=== PATIENT | male | born 1960 | race Caucasian/White ===

== ENCOUNTER 2017-03-02 23:57 | Inpatient (IN) | payer OTHER ==
[~2017-03-02] VITALS: Ht 190.5 cm; Wt 110.7 kg
[2017-03-03] VITALS (9 sets, daily range): BP systolic 103–151; BP diastolic 68–105
[2017-03-03 00:46] LABS: BASO % 0.4 % (0.0-1.0); EOS # 0.1 10*3/uL (0.0-0.4); EOS % 0.8 % (1.0-4.0); HEMATOCRIT 40.7 % (42.0-52.0); HEMOGLOBIN 13.8 g/dl (14.0-18.0); LYMPH % 28.5 % (27.0-41.0); MEAN CELL VOLUME 91.3 fl (80.0-94.0); MEAN CORPUSCULAR HGB 30.9 pg (27.0-31.0); MEAN CORPUSCULAR HGB CONC 33.9 g/dl (33.0-37.0); MEAN PLATELET VOLUME 8.7 fl (9.6-12.3); MONO # 0.6 10*3/uL (0.1-1.0); MONO % 5.6 % (3.0-9.0); NEUT # 6.8 10*3/uL (2.3-7.9); NEUT % 64.4 % (47.0-73.0); PLATELET COUNT AUTOMATED 243 10*3/uL (130-400); RED BLOOD COUNT 4.46 10*6/uL (4.50-5.90); RED CELL DISTRI WIDTH 13.5 % (0-14.5); WHITE BLOOD COUNT 10.5 10*3/uL (4.8-10.8)
[2017-03-03 01:01] LABS: ALBUMIN 3.6 gm/dl (3.1-4.5); ALKALINE PHOSPHATASE 110 U/L (45-117); BILIRUBIN, TOTAL 0.7 mg/dl (0.2-1.0); BUN 26 mg/dl (7-24); CARBON DIOXIDE 21 mmol/L (21-32); CHLORIDE 98 mmol/L (98-107); EST GLOM FILT AFRICAN AMERICAN > 60 ml/min; GLUCOSE 150 mg/dL (65-99); MAGNESIUM 1.7 mg/dL (1.5-2.1); POTASSIUM 4.9 mmol/L (3.5-5.1); SGOT/AST 155 IU/L (3-35); SGPT/ALT 193 U/L (12-78); SODIUM 134 mmol/L (136-145); TOTAL PROTEIN 7.2 gm/dL (6.4-8.2)
[2017-03-03 01:11] LABS: INTERNATIONAL NORM RATIO 0.9 (2.0-3.5)
[2017-03-03] MEDS ORDERED: HYDROXYZINE PAM25 M1 PO (02:06)
[2017-03-03] MEDS ORDERED: SSD1% T (02:07)
[2017-03-03] MEDS ORDERED: ATORVASTATIN CA20 M1 PO (02:07)
[2017-03-03] MEDS ORDERED: LISINOPRIL30 MG PO (02:07)
[2017-03-03] MEDS ORDERED: METFORMIN HCL1000 MG PO (02:07)
[2017-03-03] MEDS ORDERED: ASPIRIN CHEWABL81 MG PO (02:08)
[2017-03-03] MEDS ORDERED: PRILOSEC20 M1 PO (02:08)
[2017-03-03 02:09] LABS: BILIRUBIN NEGATIVE (NEGATIVE); BLOOD NEGATIVE (NEGATIVE); CLARITY CLEAR (CLEAR); COLOR YELLOW (YELLOW); GLUCOSE NEGATIVE (NEGATIVE); KETONE 1+ (NEGATIVE); LEUKO ESTERASE NEGATIVE (NEGATIVE); NITRITE NEGATIVE (NEGATIVE); PROTEIN NEGATIVE (NEGATIVE); UROBILINOGEN 0.2 E.U./dl (0.2-1.0)
[2017-03-03 02:18] LABS: BACTERIA 1+
[2017-03-03 02:19] LABS: URINE AMPHETAMINES < 1000 (1000ng/ml); URINE BARBITURATES < 200 (200ng/ml); URINE COCAINE < 300 (300ng/ml)
[2017-03-03] MEDS ORDERED: KEFLEX250 MG PO ×2 (03:22)
[2017-03-03 06:01] LABS: MAGNESIUM 1.7 mg/dL (1.5-2.1); PHOSPHOROUS 2.9 mg/dL (2.5-4.9)
[2017-03-03 06:56] LABS: BUN 22 mg/dl (7-24); CARBON DIOXIDE 22 mmol/L (21-32); CHLORIDE 98 mmol/L (98-107); EST GLOM FILT AFRICAN AMERICAN > 60 ml/min; GLUCOSE 85 mg/dL (65-99); POTASSIUM 4.3 mmol/L (3.5-5.1); SODIUM 137 mmol/L (136-145)
[2017-03-04] VITALS: BP 149/90
[2017-03-04 04:00] VITALS: BP 135/100
[2017-03-04 06:23] LABS: BASO % 0.3 % (0.0-1.0); EOS # 0.2 10*3/uL (0.0-0.4); EOS % 2.6 % (1.0-4.0); HEMOGLOBIN 13.7 g/dl (14.0-18.0); LYMPH # 1.2 10*3/uL (1.3-4.4); LYMPH % 19.2 % (27.0-41.0); MEAN CELL VOLUME 91.1 fl (80.0-94.0); MEAN CORPUSCULAR HGB 31.2 pg (27.0-31.0); MEAN CORPUSCULAR HGB CONC 34.3 g/dl (33.0-37.0); MEAN PLATELET VOLUME 9.1 fl (9.6-12.3); MONO # 0.4 10*3/uL (0.1-1.0); MONO % 7.1 % (3.0-9.0); NEUT # 4.3 10*3/uL (2.3-7.9); NEUT % 70.5 % (47.0-73.0); RED BLOOD COUNT 4.39 10*6/uL (4.50-5.90); RED CELL DISTRI WIDTH 13.2 % (0-14.5); WHITE BLOOD COUNT 6.1 10*3/uL (4.8-10.8)
[2017-03-04 06:26] LABS: PLATELET COUNT AUTOMATED 140 10*3/uL (130-400)
[2017-03-04 06:29] LABS: ALBUMIN 3.6 gm/dl (3.1-4.5); BILIRUBIN, TOTAL 1.2 mg/dl (0.2-1.0); BUN 16 mg/dl (7-24); CARBON DIOXIDE 30 mmol/L (21-32); CHLORIDE 95 mmol/L (98-107); EST GLOM FILT AFRICAN AMERICAN > 60 ml/min; GLUCOSE 148 mg/dL (65-99); POTASSIUM 4.1 mmol/L (3.5-5.1); SGOT/AST 88 IU/L (3-35); SGPT/ALT 153 U/L (12-78); SODIUM 134 mmol/L (136-145); TOTAL PROTEIN 7.2 gm/dL (6.4-8.2)
[2017-03-04 06:39] LABS: ALKALINE PHOSPHATASE 110 U/L (45-117)
[2017-03-04 08:00] VITALS: BP 154/114
[2017-03-04 09:07] LABS: HEPATITIS C VIRUS ANTIBODY <0.1 s/co (0.0-0.9)
[2017-03-04 12:00] VITALS: BP 139/94
[2017-03-04 16:00] VITALS: BP 122/89
== END 2017-03-04 18:20 | disposition left against medical advice (07) | DRG 894 ==
LOC: ED 23:57 → EDHOLD 03-03 02:25 → ICCU 03-03 02:37
PROVIDERS: Emergency Medicine Emergency Medical Services; Internal Medicine
DX: F10.231 Alcohol dependence with withdrawal delirium (principal); N17.0 Acute kidney failure with tubular necrosis; E87.1 Hypo-osmolality and hyponatremia; J02.9 Acute pharyngitis, unspecified; F17.200 Nicotine dependence, unspecified, uncomplicated; E11.65 Type 2 diabetes mellitus with hyperglycemia; E78.1 Pure hyperglyceridemia; K21.9 Gastro-esophageal reflux disease without esophagitis; I10 Essential (primary) hypertension; F41.9 Anxiety disorder, unspecified; D64.9 Anemia, unspecified; Z53.21 Procedure and treatment not carried out due to patient leaving prior to being seen by health care provider; Z82.0 Family history of epilepsy and other diseases of the nervous system; Z83.3 Family history of diabetes mellitus; Z79.82 Long term (current) use of aspirin; Z79.84 Long term (current) use of oral hypoglycemic drugs; Z79.899 Other long term (current) drug therapy

== ENCOUNTER 2017-03-06 12:00 | Inpatient (IN) | payer OTHER ==
[~2017-03-06] VITALS: Ht 190.5 cm; Wt 107.6 kg
--- NOTE | ~2017-03-06 | CON ---
[place], [place] REPORT OF CONSULTATION [id number] UNIT #: [id number] ROOM: 407 DOCTOR: MORIAH RUBIO DPM BIRTHDATE: [birth year] DOS: 03/08/2017 SUBJECTIVE: The patient is a 56-year-old male who has been well known to me for diabetic ulcerations. The patient had currently being treated for chronic plantar right hallux ulceration. The patient was taking cephalexin outpatient. PAST MEDICAL HISTORY: Alcohol abuse, anxiety, diabetes, essential hypertension, GERD, hypercholesteremia, normocytic anemia, obesity, tobacco abuse disorder. PAST SURGICAL HISTORY: None. SOCIAL HISTORY: Chews tobacco 1-1.5 cans daily. Daily alcohol consumption. Denies illicit drug use. FAMILY HISTORY: Father age 78 of Alzheimer disease. Mother at age 74 of diabetes with complications. PHYSICAL EXAMINATION: EXTREMITIES: Lower extremity examination: Pedal pulses palpable. Decreased epicritic sensation. Decreased hair growth. Ulceration on plantar right hallux measuring approximately 1.6 cm diameter is to and through subcutaneous tissue level. No signs of purulent drainage or foul odor. No localized cellulitis. There is an abrasion to the dorsal second right toe. No signs of acute infection of second right toe. ASSESSMENT: Diabetic ulceration on plantar aspect right hallux, abrasion second right toe. PLAN: Evaluation and management. Debrided necrotic nonviable tissue excisionally with a 10 blade plantar aspect right hallux. Ordered Bactroban dressing to be applied daily. The first and second right toes, cephalexin 500 mg 1 every 8 hours. The patient will be followed for continued care. The patient was going to be set up for application of Dermagraft tissue graft, but we will defer that until the patient is stable. MORIAH RUBIO DPM CM:CONSTR:REPORT OF CONSULTATION 1211 03/08/17 [id number] interface
[~2017-03-06 12:00] MED LIST: ASPIRIN CHEWABL81 MG PO; ATORVASTATIN CA20 M1 PO; HYDROXYZINE PAM25 M1 PO; KEFLEX250 MG PO; LISINOPRIL30 MG PO; METFORMIN HCL1000 MG PO; PRILOSEC20 M1 PO; SSD1% T
[2017-03-06 12:31] VITALS: BP 118/98
[2017-03-06 12:46] LABS: BASO % 0.5 % (0.0-1.0); EOS # 0.1 10*3/uL (0.0-0.4); EOS % 1.6 % (1.0-4.0); HEMATOCRIT 37.4 % (42.0-52.0); HEMOGLOBIN 12.9 g/dl (14.0-18.0); LYMPH # 1.7 10*3/uL (1.3-4.4); LYMPH % 19.8 % (27.0-41.0); MEAN CELL VOLUME 90.3 fl (80.0-94.0); MEAN CORPUSCULAR HGB 31.2 pg (27.0-31.0); MEAN CORPUSCULAR HGB CONC 34.5 g/dl (33.0-37.0); MEAN PLATELET VOLUME 8.4 fl (9.6-12.3); MONO # 0.7 10*3/uL (0.1-1.0); MONO % 7.9 % (3.0-9.0); NEUT # 5.9 10*3/uL (2.3-7.9); NEUT % 69.8 % (47.0-73.0); PLATELET COUNT AUTOMATED 163 10*3/uL (130-400); RED BLOOD COUNT 4.14 10*6/uL (4.50-5.90); RED CELL DISTRI WIDTH 13.4 % (0-14.5); WHITE BLOOD COUNT 8.5 10*3/uL (4.8-10.8)
[2017-03-06 12:57] LABS: PROTHROMBIN TIME 10.5 SECONDS (9.0-12.4)
[2017-03-06 13:03] LABS: ALBUMIN 3.6 gm/dl (3.1-4.5); ALKALINE PHOSPHATASE 127 U/L (45-117); BILIRUBIN, TOTAL 0.6 mg/dl (0.2-1.0); BUN 13 mg/dl (7-24); CARBON DIOXIDE 23 mmol/L (21-32); CHLORIDE 97 mmol/L (98-107); EST GLOM FILT AFRICAN AMERICAN > 60 ml/min; GLUCOSE 94 mg/dL (65-99); POTASSIUM 4.3 mmol/L (3.5-5.1); SGOT/AST 96 IU/L (3-35); SGPT/ALT 153 U/L (12-78); SODIUM 134 mmol/L (136-145); TOTAL PROTEIN 7.3 gm/dL (6.4-8.2)
[2017-03-06 13:04] LABS: TROPONIN I < 0.015 ng/ml (<0.045)
[2017-03-06 13:27] VITALS: BP 116/82
[2017-03-06 16:00] VITALS: BP 118/67
[2017-03-06 16:46] LABS: LA>2 REFLEX 2 HR DRAW NOW
[2017-03-06] MEDS ORDERED: NATURE'S BLEND F1 MG PO (19:18)
[2017-03-06] MEDS ORDERED: MAGNESIUM250 M2 PO (19:19)
[2017-03-06] MEDS ORDERED: VIT C-ROSE HIP500 MG PO (19:20)
[2017-03-06] MEDS ORDERED: VITAMIN B150 MG PO (19:22)
[2017-03-06 20:00] VITALS: BP 134/92
[2017-03-06 22:52] LABS: BILIRUBIN NEGATIVE (NEGATIVE); BLOOD NEGATIVE (NEGATIVE); CLARITY CLEAR (CLEAR); COLOR YELLOW (YELLOW); GLUCOSE NEGATIVE (NEGATIVE); KETONE 1+ (NEGATIVE); LEUKO ESTERASE NEGATIVE (NEGATIVE); NITRITE NEGATIVE (NEGATIVE); PH 5.5 (5.0-9.0); PROTEIN NEGATIVE (NEGATIVE); SPECIFIC GRAVITY 1.015 (1.005-1.030); UROBILINOGEN 0.2 E.U./dl (0.2-1.0)
[2017-03-06 22:58] LABS: RBC 0-2 rbc/hpf (0-2); URINE REFLEX COMMENT NO (NO); WBC 0-2 wbc/hpf (0-5)
[2017-03-06 23:01] LABS: URINE AMPHETAMINES < 1000 (1000ng/ml); URINE BARBITURATES < 200 (200ng/ml); URINE COCAINE < 300 (300ng/ml)
[2017-03-07] VITALS: BP 117/63
[2017-03-07 04:00] VITALS: BP 137/71
[2017-03-07 05:52] LABS: ALBUMIN 3.2 gm/dl (3.1-4.5); BUN 14 mg/dl (7-24); CARBON DIOXIDE 29 mmol/L (21-32); CHLORIDE 100 mmol/L (98-107); EST GLOM FILT AFRICAN AMERICAN > 60 ml/min; GLUCOSE 106 mg/dL (65-99); POTASSIUM 4.5 mmol/L (3.5-5.1); SGOT/AST 60 IU/L (3-35); SGPT/ALT 117 U/L (12-78); SODIUM 136 mmol/L (136-145)
[2017-03-07 05:53] LABS: ALKALINE PHOSPHATASE 103 U/L (45-117); BILIRUBIN, TOTAL 0.4 mg/dl (0.2-1.0); TOTAL PROTEIN 6.3 gm/dL (6.4-8.2)
[2017-03-07 05:55] LABS: BASO % 0.3 % (0.0-1.0); EOS # 0.2 10*3/uL (0.0-0.4); EOS % 3.1 % (1.0-4.0); HEMATOCRIT 35.4 % (42.0-52.0); HEMOGLOBIN 11.9 g/dl (14.0-18.0); LYMPH # 1.5 10*3/uL (1.3-4.4); LYMPH % 23.8 % (27.0-41.0); MEAN CELL VOLUME 92.2 fl (80.0-94.0); MEAN CORPUSCULAR HGB CONC 33.6 g/dl (33.0-37.0); MEAN PLATELET VOLUME 9.2 fl (9.6-12.3); MONO # 0.5 10*3/uL (0.1-1.0); MONO % 8.3 % (3.0-9.0); NEUT # 4.1 10*3/uL (2.3-7.9); NEUT % 63.9 % (47.0-73.0); PLATELET COUNT AUTOMATED 128 10*3/uL (130-400); RED BLOOD COUNT 3.84 10*6/uL (4.50-5.90); RED CELL DISTRI WIDTH 13.5 % (0-14.5); WHITE BLOOD COUNT 6.5 10*3/uL (4.8-10.8)
[2017-03-07 06:01] LABS: HEMOGLOBIN A1c 5.9 % (4.8-5.6)
[2017-03-07 08:00] VITALS: BP 163/90
[2017-03-07 12:00] VITALS: BP 140/70
[2017-03-07 16:00] VITALS: BP 148/97
[2017-03-07 20:00] VITALS: BP 127/83
[2017-03-08] VITALS: BP 143/87
[2017-03-08 04:00] VITALS: BP 136/84
[2017-03-08 06:14] LABS: BASO % 0.2 % (0.0-1.0); EOS # 0.1 10*3/uL (0.0-0.4); EOS % 2.4 % (1.0-4.0); HEMATOCRIT 36.4 % (42.0-52.0); HEMOGLOBIN 12.3 g/dl (14.0-18.0); LYMPH # 1.1 10*3/uL (1.3-4.4); LYMPH % 19.1 % (27.0-41.0); MEAN CELL VOLUME 91.5 fl (80.0-94.0); MEAN CORPUSCULAR HGB 30.9 pg (27.0-31.0); MEAN CORPUSCULAR HGB CONC 33.8 g/dl (33.0-37.0); MEAN PLATELET VOLUME 9.3 fl (9.6-12.3); MONO # 0.7 10*3/uL (0.1-1.0); MONO % 12.4 % (3.0-9.0); NEUT # 3.8 10*3/uL (2.3-7.9); NEUT % 65.6 % (47.0-73.0); PLATELET COUNT AUTOMATED 115 10*3/uL (130-400); RED BLOOD COUNT 3.98 10*6/uL (4.50-5.90); RED CELL DISTRI WIDTH 13.3 % (0-14.5); WHITE BLOOD COUNT 5.8 10*3/uL (4.8-10.8)
[2017-03-08 06:18] LABS: ALBUMIN 3.2 gm/dl (3.1-4.5); ALKALINE PHOSPHATASE 116 U/L (45-117); BILIRUBIN, TOTAL 0.5 mg/dl (0.2-1.0); BUN 8 mg/dl (7-24); CARBON DIOXIDE 29 mmol/L (21-32); CHLORIDE 98 mmol/L (98-107); EST GLOM FILT AFRICAN AMERICAN > 60 ml/min; GLUCOSE 128 mg/dL (65-99); SGOT/AST 41 IU/L (3-35); SGPT/ALT 105 U/L (12-78); SODIUM 135 mmol/L (136-145); TOTAL PROTEIN 6.6 gm/dL (6.4-8.2)
[2017-03-08 08:00] VITALS: BP 130/90
[2017-03-08 12:00] VITALS: BP 110/96
[2017-03-08 16:00] VITALS: BP 118/81
[2017-03-08 20:00] VITALS: BP 145/81
[2017-03-09] VITALS: BP 128/76
[2017-03-09 06:42] LABS: BASO % 0.5 % (0.0-1.0); EOS # 0.1 10*3/uL (0.0-0.4); EOS % 1.6 % (1.0-4.0); HEMATOCRIT 40.5 % (42.0-52.0); HEMOGLOBIN 13.7 g/dl (14.0-18.0); IG # 0.1 10*3/uL (0.0-0.1); LYMPH % 30.3 % (27.0-41.0); MEAN CELL VOLUME 92.3 fl (80.0-94.0); MEAN CORPUSCULAR HGB 31.2 pg (27.0-31.0); MEAN CORPUSCULAR HGB CONC 33.8 g/dl (33.0-37.0); MEAN PLATELET VOLUME 9.2 fl (9.6-12.3); MONO # 0.8 10*3/uL (0.1-1.0); MONO % 12.3 % (3.0-9.0); NEUT # 3.5 10*3/uL (2.3-7.9); NEUT % 54.4 % (47.0-73.0); PLATELET COUNT AUTOMATED 204 10*3/uL (130-400); RED BLOOD COUNT 4.39 10*6/uL (4.50-5.90); RED CELL DISTRI WIDTH 13.5 % (0-14.5); WHITE BLOOD COUNT 6.4 10*3/uL (4.8-10.8)
[2017-03-09 07:01] LABS: ALBUMIN 3.7 gm/dl (3.1-4.5); ALKALINE PHOSPHATASE 133 U/L (45-117); BILIRUBIN, TOTAL 0.5 mg/dl (0.2-1.0); BUN 10 mg/dl (7-24); CARBON DIOXIDE 32 mmol/L (21-32); CHLORIDE 98 mmol/L (98-107); EST GLOM FILT AFRICAN AMERICAN > 60 ml/min; GLUCOSE 138 mg/dL (65-99); POTASSIUM 4.8 mmol/L (3.5-5.1); SGOT/AST 47 IU/L (3-35); SGPT/ALT 115 U/L (12-78); SODIUM 135 mmol/L (136-145); TOTAL PROTEIN 7.8 gm/dL (6.4-8.2)
[2017-03-09 08:00] VITALS: BP 144/82
[2017-03-09 12:00] VITALS: BP 131/81
[2017-03-09 16:00] VITALS: BP 154/85
[2017-03-09 20:00] VITALS: BP 123/71
[2017-03-10] VITALS: BP 130/83
[2017-03-10 08:00] VITALS: BP 118/80
[2017-03-10] MEDS ORDERED: KEFLEX 500 MG E2 CAP PO (09:26)
== END 2017-03-10 11:02 | disposition home or self-care (01) | DRG 623 ==
LOC: ED 12:00 → EDHOLD 12:57 → 4E 12:57 → ICCU 13:05 → 4E 03-08 09:39
PROVIDERS: Internal Medicine; Internal Medicine Hospice and Palliative Medicine; Nurse Practitioner Family
PROC: 0JBQ0ZZ Excision of Right Foot Subcutaneous Tissue and Fascia, Open Approach (ICD-10-PCS; principal; 2017-03-08)
DX: E11.621 Type 2 diabetes mellitus with foot ulcer (principal); F10.231 Alcohol dependence with withdrawal delirium; L97.519 Non-pressure chronic ulcer of other part of right foot with unspecified severity; E87.2 Acidosis; E44.0 Moderate protein-calorie malnutrition; R65.10 Systemic inflammatory response syndrome (SIRS) of non-infectious origin without acute organ dysfunction; E87.8 Other disorders of electrolyte and fluid balance, not elsewhere classified; E87.1 Hypo-osmolality and hyponatremia; D64.9 Anemia, unspecified; E78.00 Pure hypercholesterolemia, unspecified; K21.9 Gastro-esophageal reflux disease without esophagitis; I10 Essential (primary) hypertension; F41.9 Anxiety disorder, unspecified; E66.09 Other obesity due to excess calories; D72.810 Lymphocytopenia; R06.82 Tachypnea, not elsewhere classified; R00.0 Tachycardia, unspecified; S90.414A Abrasion, right lesser toe(s), initial encounter; D69.6 Thrombocytopenia, unspecified; F17.210 Nicotine dependence, cigarettes, uncomplicated; Z82.0 Family history of epilepsy and other diseases of the nervous system; Z83.3 Family history of diabetes mellitus; Z79.82 Long term (current) use of aspirin; Z79.899 Other long term (current) drug therapy; Z68.30 Body mass index [BMI] 30.0-30.9, adult

== ENCOUNTER 2017-03-19 15:07 | Emergency (ER) | payer OTHER ==
[~2017-03-19 15:07] MED LIST changes: +KEFLEX 500 MG E2 CAP PO; +MAGNESIUM250 M2 PO; +NATURE'S BLEND F1 MG PO; +VIT C-ROSE HIP500 MG PO; +VITAMIN B150 MG PO
[2017-03-19 15:29] LABS: BASO # 0.1 10*3/uL (0.0-0.1); BASO % 0.7 % (0.0-1.0); EOS # 0.1 10*3/uL (0.0-0.4); EOS % 0.4 % (1.0-4.0); HEMATOCRIT 42.5 % (42.0-52.0); HEMOGLOBIN 14.5 g/dl (14.0-18.0); LYMPH % 15.7 % (27.0-41.0); MEAN CORPUSCULAR HGB 30.7 pg (27.0-31.0); MEAN CORPUSCULAR HGB CONC 34.1 g/dl (33.0-37.0); MEAN PLATELET VOLUME 8.1 fl (9.6-12.3); MONO # 0.8 10*3/uL (0.1-1.0); MONO % 5.8 % (3.0-9.0); NEUT % 77.1 % (47.0-73.0); PLATELET COUNT AUTOMATED 392 10*3/uL (130-400); RED BLOOD COUNT 4.72 10*6/uL (4.50-5.90); RED CELL DISTRI WIDTH 13.6 % (0-14.5)
[2017-03-19 15:40] LABS: BILIRUBIN NEGATIVE (NEGATIVE); BLOOD 1+ (NEGATIVE); CLARITY SL CLOUDY (CLEAR); COLOR YELLOW (YELLOW); GLUCOSE NEGATIVE (NEGATIVE); KETONE 1+ (NEGATIVE); LEUKO ESTERASE NEGATIVE (NEGATIVE); NITRITE NEGATIVE (NEGATIVE); PROTEIN 2+ (NEGATIVE); SPECIFIC GRAVITY >= 1.030 (1.005-1.030); UROBILINOGEN 0.2 E.U./dl (0.2-1.0)
[2017-03-19 15:46] LABS: ALBUMIN 3.7 gm/dl (3.1-4.5); ALKALINE PHOSPHATASE 141 U/L (45-117); BILIRUBIN, TOTAL 0.5 mg/dl (0.2-1.0); BUN 21 mg/dl (7-24); CARBON DIOXIDE 19 mmol/L (21-32); CHLORIDE 97 mmol/L (98-107); CPK 359 U/L (39-308); EST GLOM FILT AFRICAN AMERICAN > 60 ml/min; GLUCOSE 89 mg/dL (65-99); POTASSIUM 4.9 mmol/L (3.5-5.1); SGOT/AST 78 IU/L (3-35); SGPT/ALT 96 U/L (12-78); SODIUM 136 mmol/L (136-145); TOTAL PROTEIN 7.7 gm/dL (6.4-8.2)
[2017-03-19 15:47] LABS: BACTERIA 1+; RBC 0-2 rbc/hpf (0-2); URINE REFLEX COMMENT YES (NO)
[2017-03-19 15:49] LABS: TROPONIN I < 0.015 ng/ml (<0.045)
[2017-03-19 15:49] LABS: URINE AMPHETAMINES < 1000 (1000ng/ml); URINE BARBITURATES < 200 (200ng/ml); URINE COCAINE < 300 (300ng/ml)
[2017-03-19 15:50] LABS: CKMB 8.7 ng/ml (0.5-3.6)
== END 2017-03-19 17:31 | disposition home or self-care (01) ==
LOC: ED 15:07
PROVIDERS: Nurse Practitioner Family
DX: S80.812A Abrasion, left lower leg, initial encounter (principal); S80.811A Abrasion, right lower leg, initial encounter; S40.812A Abrasion of left upper arm, initial encounter; S40.811A Abrasion of right upper arm, initial encounter; F10.10 Alcohol abuse, uncomplicated; R03.0 Elevated blood-pressure reading, without diagnosis of hypertension; R94.5 Abnormal results of liver function studies; E11.9 Type 2 diabetes mellitus without complications; I10 Essential (primary) hypertension; K21.9 Gastro-esophageal reflux disease without esophagitis; E78.00 Pure hypercholesterolemia, unspecified; Z79.82 Long term (current) use of aspirin; Z79.899 Other long term (current) drug therapy; W31.89XA Contact with other specified machinery, initial encounter; Y93.89 Activity, other specified; Y92.89 Other specified places as the place of occurrence of the external cause; Y99.8 Other external cause status

== ENCOUNTER 2017-10-22 19:48 | Emergency (ER) | payer OTHER ==
[~2017-10-22] VITALS: Ht 187.9 cm; Wt 99.8 kg
[~2017-10-22 19:48] MED LIST changes: +DOXYCYCLINE100 M3 PO; -LISINOPRIL30 MG PO; -METFORMIN HCL1000 MG PO; +METFORMIN HYDR500 MG PO; +ZESTRIL20 MG PO
[2017-10-22 20:47] LABS: BASO # 0.1 10*3/uL (0.0-0.1); BASO % 0.6 % (0.0-1.0); EOS # 0.2 10*3/uL (0.0-0.4); EOS % 1.9 % (1.0-4.0); HEMATOCRIT 44.4 % (42.0-52.0); HEMOGLOBIN 15.2 g/dl (14.0-18.0); LYMPH # 2.9 10*3/uL (1.3-4.4); LYMPH % 29.8 % (27.0-41.0); MEAN CELL VOLUME 82.2 fl (80.0-94.0); MEAN CORPUSCULAR HGB 28.1 pg (27.0-31.0); MEAN CORPUSCULAR HGB CONC 34.2 g/dl (33.0-37.0); MEAN PLATELET VOLUME 8.6 fl (9.6-12.3); MONO # 0.4 10*3/uL (0.1-1.0); MONO % 4.2 % (3.0-9.0); NEUT # 6.2 10*3/uL (2.3-7.9); NEUT % 63.2 % (47.0-73.0); PLATELET COUNT AUTOMATED 264 10*3/uL (130-400); RED CELL DISTRI WIDTH 13.2 % (0-14.5); WHITE BLOOD COUNT 9.8 10*3/uL (4.8-10.8)
[2017-10-22 20:50] LABS: URINE AMPHETAMINES < 1000 (1000ng/ml); URINE BARBITURATES < 200 (200ng/ml); URINE BENZODIAZEPINES < 200 (200ng/ml); URINE CANNABINOIDS (THC) < 50 (50ng/ml); URINE COCAINE < 300 (300ng/ml); URINE METHADONE < 300 (300ng/ml); URINE OPIATES < 300 (300ng/ml)
[2017-10-22 20:51] LABS: URINE PHENCYCLIDINE < 25 (25ng/ml)
[2017-10-22 21:03] LABS: ALBUMIN 3.8 gm/dl (3.1-4.5); ALKALINE PHOSPHATASE 135 U/L (45-117); BUN 22 mg/dl (7-24); CHLORIDE 89 mmol/L (98-107); CREATININE 1.08 mg/dL (0.70-1.30); POTASSIUM 4.5 mmol/L (3.5-5.1); SGOT/AST 44 IU/L (3-35); SGPT/ALT 56 U/L (12-78); SODIUM 128 mmol/L (136-145); TOTAL PROTEIN 7.7 gm/dL (6.4-8.2); TROPONIN I < 0.015 ng/ml (<0.045)
[2017-10-23] MEDS ORDERED: 'CLONIDINE0.1 MG PO (07:31)
[2017-10-23] MEDS ORDERED: LISINOPRIL30 MG PO (08:46)
== END 2017-10-23 00:38 | disposition left against medical advice (07) ==
LOC: ED 19:48
PROVIDERS: Nurse Practitioner Family
DX: F10.10 Alcohol abuse, uncomplicated (principal); E87.1 Hypo-osmolality and hyponatremia; E11.9 Type 2 diabetes mellitus without complications; I10 Essential (primary) hypertension; K21.9 Gastro-esophageal reflux disease without esophagitis; E78.00 Pure hypercholesterolemia, unspecified; Z79.82 Long term (current) use of aspirin; Z79.899 Other long term (current) drug therapy

== ENCOUNTER 2017-10-23 07:23 | Inpatient (IN) | payer OTHER ==
[~2017-10-23] VITALS: Ht 190.5 cm; Wt 113.6 kg
[2017-10-23] VITALS (7 sets, daily range): BP systolic 128–190; BP diastolic 66–105
[2017-10-23] MEDS ORDERED: 'CLONIDINE0.1 MG PO (07:31)
[2017-10-23 07:55] LABS: BASO % 0.4 % (0.0-1.0); EOS # 0.1 10*3/uL (0.0-0.4); EOS % 1.3 % (1.0-4.0); HEMATOCRIT 39.6 % (42.0-52.0); HEMOGLOBIN 13.9 g/dl (14.0-18.0); LYMPH # 1.3 10*3/uL (1.3-4.4); LYMPH % 18.2 % (27.0-41.0); MEAN CELL VOLUME 81.5 fl (80.0-94.0); MEAN CORPUSCULAR HGB 28.6 pg (27.0-31.0); MEAN CORPUSCULAR HGB CONC 35.1 g/dl (33.0-37.0); MEAN PLATELET VOLUME 8.2 fl (9.6-12.3); MONO # 0.5 10*3/uL (0.1-1.0); MONO % 7.3 % (3.0-9.0); NEUT # 5.2 10*3/uL (2.3-7.9); NEUT % 72.5 % (47.0-73.0); PLATELET COUNT AUTOMATED 187 10*3/uL (130-400); RED BLOOD COUNT 4.86 10*6/uL (4.50-5.90); RED CELL DISTRI WIDTH 13.1 % (0-14.5); WHITE BLOOD COUNT 7.2 10*3/uL (4.8-10.8)
[2017-10-23 08:11] LABS: ALBUMIN 3.7 gm/dl (3.1-4.5); ALKALINE PHOSPHATASE 121 U/L (45-117); BUN 17 mg/dl (7-24); CHLORIDE 94 mmol/L (98-107); CREATININE 1.07 mg/dL (0.70-1.30); POTASSIUM 4.2 mmol/L (3.5-5.1); SGOT/AST 45 IU/L (3-35); SGPT/ALT 55 U/L (12-78); SODIUM 131 mmol/L (136-145); TOTAL PROTEIN 7.3 gm/dL (6.4-8.2)
[2017-10-23 08:18] LABS: TROPONIN I < 0.015 ng/ml (<0.045)
[2017-10-23] MEDS ORDERED: LISINOPRIL30 MG PO (08:46)
[2017-10-24 04:00] VITALS: BP 145/88
[2017-10-24 05:58] LABS: BASO % 0.3 % (0.0-1.0); EOS # 0.2 10*3/uL (0.0-0.4); EOS % 4.2 % (1.0-4.0); HEMATOCRIT 39.4 % (42.0-52.0); HEMOGLOBIN 13.6 g/dl (14.0-18.0); LYMPH # 1.8 10*3/uL (1.3-4.4); LYMPH % 31.4 % (27.0-41.0); MEAN CELL VOLUME 83.5 fl (80.0-94.0); MEAN CORPUSCULAR HGB 28.8 pg (27.0-31.0); MEAN CORPUSCULAR HGB CONC 34.5 g/dl (33.0-37.0); MEAN PLATELET VOLUME 9.1 fl (9.6-12.3); MONO # 0.5 10*3/uL (0.1-1.0); MONO % 8.4 % (3.0-9.0); NEUT # 3.2 10*3/uL (2.3-7.9); NEUT % 55.4 % (47.0-73.0); PLATELET COUNT AUTOMATED 150 10*3/uL (130-400); RED BLOOD COUNT 4.72 10*6/uL (4.50-5.90); RED CELL DISTRI WIDTH 13.2 % (0-14.5); WHITE BLOOD COUNT 5.7 10*3/uL (4.8-10.8)
[2017-10-24 06:14] LABS: ALBUMIN 3.6 gm/dl (3.1-4.5); BUN 16 mg/dl (7-24); CHLORIDE 99 mmol/L (98-107); CHOLESTEROL 149 mg/dL (<200); CREATININE 1.02 mg/dL (0.70-1.30); POTASSIUM 3.8 mmol/L (3.5-5.1); SGOT/AST 42 IU/L (3-35); SGPT/ALT 57 U/L (12-78); SODIUM 136 mmol/L (136-145)
[2017-10-24 06:22] LABS: ALKALINE PHOSPHATASE 110 U/L (45-117); FREE T4 1.15 ng/dl (0.76-1.46); HDL CHOLESTEROL 59 mg/dl (40-60); LDL CHOLESTEROL 60 mg/dL (9-159); TOTAL PROTEIN 6.9 gm/dL (6.4-8.2); TRIGLYCERIDES 149 mg/dl (<150); VLDL CHOLESTEROL 30 mg/dL (6-40)
[2017-10-24 08:00] VITALS: BP 138/91
[2017-10-24 08:15] LABS: VITAMIN D, 25-HYDROXY 31.2 ng/mL (30-100)
== END 2017-10-24 09:50 | disposition left against medical advice (07) | DRG 641 ==
LOC: ED 07:23 → EDHOLD 08:15 → ICCU 08:15 → EDHOLD 08:23 → ICCU 08:31
PROVIDERS: Family Medicine; Student in an Organized Health Care Education/Training Program
DX: E87.1 Hypo-osmolality and hyponatremia (principal); E67.8 Other specified hyperalimentation; E11.65 Type 2 diabetes mellitus with hyperglycemia; E87.2 Acidosis; R65.10 Systemic inflammatory response syndrome (SIRS) of non-infectious origin without acute organ dysfunction; E83.39 Other disorders of phosphorus metabolism; F10.230 Alcohol dependence with withdrawal, uncomplicated; E87.8 Other disorders of electrolyte and fluid balance, not elsewhere classified; D64.9 Anemia, unspecified; E66.9 Obesity, unspecified; E78.00 Pure hypercholesterolemia, unspecified; F10.10 Alcohol abuse, uncomplicated; K21.9 Gastro-esophageal reflux disease without esophagitis; R06.82 Tachypnea, not elsewhere classified; I10 Essential (primary) hypertension; F17.200 Nicotine dependence, unspecified, uncomplicated; Z81.8 Family history of other mental and behavioral disorders; Z83.3 Family history of diabetes mellitus; D72.810 Lymphocytopenia; R74.0 Nonspecific elevation of levels of transaminase and lactic acid dehydrogenase [LDH]; Z71.6 Tobacco abuse counseling; Z79.4 Long term (current) use of insulin; F41.1 Generalized anxiety disorder; J06.9 Acute upper respiratory infection, unspecified; Z53.21 Procedure and treatment not carried out due to patient leaving prior to being seen by health care provider

== ENCOUNTER → 2019-09-04 | Outpatient (CLI) | payer OTHER ==
[~2019-09-04] MED LIST changes: +'CLONIDINE0.1 MG PO; +LISINOPRIL30 MG PO
== END | disposition home or self-care (01) ==
LOC: US 14:14
DX: M79.604 Pain in right leg (principal); M79.605 Pain in left leg; R60.0 Localized edema

== ENCOUNTER → 2020-02-21 | Outpatient (CLI) | payer OTHER | END | disposition home or self-care (01) | LOC: US 16:55 | DX: M79.604 Pain in right leg (principal); R60.0 Localized edema ==

== ENCOUNTER 2025-02-12 13:28 | Inpatient (IN) | payer MEDICARE ==
[~2025-02-12] VITALS: Ht 191 cm; Wt 89.0 kg
[~2025-02-12 13:28] MED LIST changes: +ADVIL LIQUI-GE200 M1 PO; +AMOX-CLAV 875-1 EACH PO; +COLACE100 MG PO; +CYMBALTA30 MG PO; +GOOD NEIGHBOR M25 M1 PO; +LEVOFLOXACIN750 M2 PO; +MELATONIN10 M2 PO; +METFORMIN HYD1000 MG PO; +METOPROLOL SUCC25 M2 PO; +SINEMET 25-1001 EACH PO; +TRAZODONE100 MG PO
[2025-02-12 13:44] VITALS: BP 97/53
[2025-02-12 13:52] LABS: BASO # 0.1 10*3/uL (0.0-0.1); BASO % 0.3 % (0.0-1.0); EOS # 0.1 10*3/uL (0.0-0.4); EOS % 0.6 % (1.0-4.0); HEMATOCRIT 43.6 % (42.0-52.0); MEAN CELL VOLUME 84.2 fl (80.0-94.0); MEAN CORPUSCULAR HGB CONC 33.3 g/dl (33.0-37.0); MEAN PLATELET VOLUME 9.2 fl (9.6-12.3); MONO # 0.9 10*3/uL (0.1-1.0); MONO % 5.6 % (3.0-9.0); NEUT # 12.5 10*3/uL (2.3-7.9); NEUT % 80.7 % (47.0-73.0); PLATELET COUNT AUTOMATED 379 10*3/uL (130-400); RED BLOOD COUNT 5.18 10*6/uL (4.50-5.90); WHITE BLOOD COUNT 15.4 10*3/uL (4.8-10.8)
[2025-02-12 14:13] LABS: BILIRUBIN Negative (Negative); BLOOD Negative (Negative); CLARITY Cloudy (Clear); COLOR Yellow (Yellow); GLUCOSE 2+ (Negative); KETONE Negative (Negative); LEUKO ESTERASE Negative (Negative); NITRITE Negative (Negative); SPECIFIC GRAVITY >= 1.030 (1.001-1.030); UROBILINOGEN 0.2 E.U./dl (0.0-1.0)
[2025-02-12] MEDS ORDERED: Piperacillin Sodium/Tazobact 50 ML IV ONE (14:25)
[2025-02-12] MEDS ORDERED: Vancomycin Hydrochloride 250 ML IV ONE (14:25)
[2025-02-12] MEDS ORDERED: SODIUM CHLORIDE 0.9% 1,000 ML IV SCH ×2 (14:25→16:20)
[2025-02-12 14:28] LABS: ALKALINE PHOSPHATASE 157 U/L (46-116); BUN 17 mg/dl (9-23); CHLORIDE 87 mmol/L (98-107); SGPT/ALT 17 U/L (5-49); TOTAL PROTEIN 7.7 gm/dL (6.0-8.0)
[2025-02-12 14:38] LABS: MUCOUS TRACE
[2025-02-12] MEDS ORDERED: INSULIN REGULAR, HUMAN 1 UNIT/0.01 ML IV ONE (14:50)
[2025-02-12] MEDS ORDERED: PAXIL30 M2 PO (15:03)
[2025-02-12] MEDS ORDERED: XARELTO10 MG PO (15:03)
[2025-02-12] MEDS ORDERED: ACETAMINOPHEN 325 MG TAB PO PRN (16:15)
[2025-02-12] MEDS ORDERED: BISACODYL 5 MG TAB PO PRN (16:15)
[2025-02-12] MEDS ORDERED: ACETAMINOPHEN 650 MG SUPP R PRN (16:15)
[2025-02-12] MEDS ORDERED: Acetaminophen/Hydrocodone 5 MG/325 MG TABLET PO PRN (16:15)
[2025-02-12] MEDS ORDERED: Ondansetron Hydrochloride 4 MG/2 ML VIAL IV PRN (16:15)
[2025-02-12] MEDS ORDERED: Magnesium Hydroxide 30 ML UDC PO PRN (16:15)
[2025-02-12] MEDS ORDERED: DEXTROSE 10 % IN WATER 250 ML IV PRN (16:25)
[2025-02-12] MEDS ORDERED: INSULIN LISPRO 1 UNIT/0.01 ML SQ SCH (16:30)
[2025-02-12] MEDS ORDERED: Carbidopa/Levodopa 25/100MG 1 TAB TAB PO SCH (18:00)
[2025-02-12 18:43] VITALS: BP 104/54
[2025-02-12 19:53] VITALS: BP 104/64
[2025-02-12] MEDS ORDERED: Piperacillin Sodium/Tazobact 50 ML IV SCH (20:00)
[2025-02-12] MEDS ORDERED: traZODone Hydrochloride 100 MG TAB PO SCH (22:00)
[2025-02-12 22:21] VITALS: BP 106/65
[2025-02-13] MEDS ORDERED: VANCOMYCIN HCL 1,250 MG in SODIUM CHLORIDE 0.9% 250 ML IV SCH (04:00)
[2025-02-13 06:21] VITALS: BP 102/59
[2025-02-13 06:26] LABS: ACT PARTIAL THROMBO TIME 29.3 SECONDS (20.0-32.1)
[2025-02-13 06:51] LABS: ALKALINE PHOSPHATASE 127 U/L (46-116); BUN 12 mg/dl (9-23); CHLORIDE 99 mmol/L (98-107); FREE T4 1.33 ng/dl (0.89-1.76); POTASSIUM 3.5 mmol/L (3.4-5.1); SGPT/ALT 8 U/L (5-49); TOTAL PROTEIN 6.7 gm/dL (6.0-8.0)
[2025-02-13 06:54] LABS: BASO % 0.5 % (0.0-1.0); EOS # 0.2 10*3/uL (0.0-0.4); EOS % 2.8 % (1.0-4.0); HEMATOCRIT 40.2 % (42.0-52.0); MEAN CELL VOLUME 86.6 fl (80.0-94.0); MEAN CORPUSCULAR HGB 27.8 pg (27.0-31.0); MEAN CORPUSCULAR HGB CONC 32.1 g/dl (33.0-37.0); MEAN PLATELET VOLUME 9.3 fl (9.6-12.3); MONO # 0.4 10*3/uL (0.1-1.0); MONO % 5.4 % (3.0-9.0); NEUT # 4.9 10*3/uL (2.3-7.9); RED BLOOD COUNT 4.64 10*6/uL (4.50-5.90); RED CELL DISTRI WIDTH 13.1 % (0-14.5); WHITE BLOOD COUNT 6.5 10*3/uL (4.8-10.8)
[2025-02-13 07:00] LABS: PLATELET COUNT AUTOMATED 266 10*3/uL (130-400)
[2025-02-13 08:24] VITALS: BP 104/65
[2025-02-13] MEDS ORDERED: FOLIC ACID 1 MG TAB PO SCH (10:00)
[2025-02-13] MEDS ORDERED: PARoxetine Hydrochloride 10 MG TAB PO SCH (10:00)
[2025-02-13] MEDS ORDERED: METOPROLOL SUCCINATE XR 25 MG TAB PO SCH (10:00)
[2025-02-13 11:43] VITALS: BP 115/70
[2025-02-13 16:58] VITALS: BP 124/64
[2025-02-13 21:20] VITALS: BP 106/68
[2025-02-13] MEDS ORDERED: AMMONIUM LACTATE 12% LOTION T SCH (22:00)
[2025-02-14] VITALS (10 sets, daily range): BP systolic 105–136; BP diastolic 60–94
[2025-02-14 06:02] LABS: BUN 10 mg/dl (9-23); CHLORIDE 98 mmol/L (98-107); POTASSIUM 4.1 mmol/L (3.4-5.1)
[2025-02-14 06:04] LABS: BASO % 0.5 % (0.0-1.0); EOS # 0.2 10*3/uL (0.0-0.4); EOS % 2.2 % (1.0-4.0); HEMATOCRIT 37.3 % (42.0-52.0); MEAN CELL VOLUME 85.4 fl (80.0-94.0); MEAN CORPUSCULAR HGB 28.4 pg (27.0-31.0); MEAN CORPUSCULAR HGB CONC 33.2 g/dl (33.0-37.0); MEAN PLATELET VOLUME 8.9 fl (9.6-12.3); MONO # 0.4 10*3/uL (0.1-1.0); MONO % 5.3 % (3.0-9.0); NEUT # 5.8 10*3/uL (2.3-7.9); PLATELET COUNT AUTOMATED 268 10*3/uL (130-400); RED BLOOD COUNT 4.37 10*6/uL (4.50-5.90); RED CELL DISTRI WIDTH 12.8 % (0-14.5); WHITE BLOOD COUNT 7.4 10*3/uL (4.8-10.8)
[2025-02-14] MEDS ORDERED: ACETAMINOPHEN 100 ML IV ONE (10:36)
[2025-02-14] MEDS ORDERED: Lactated Ringer's Solution 1,000 ML IV ONE (10:36)
[2025-02-14] MEDS ORDERED: BUPivacaine 0.5% 10 ML VIAL ONE (10:41)
[2025-02-14] MEDS ORDERED: Vancomycin Hydrochloride 1,000 MG VIAL ONE (10:41)
[2025-02-14] MEDS ORDERED: VANCOMYCIN HCL 1,250 MG in SODIUM CHLORIDE 0.9% 250 ML IV SCH ×2 (14:00)
[2025-02-14] MEDS ORDERED: Ketamine Hydrochloride 50 MG/5 ML SYRINGE IV ONE (15:45)
[2025-02-14] MEDS ORDERED: Midazolam Hydrochloride 2 MG/2 ML VIAL IV ONE (15:45)
[2025-02-14] MEDS ORDERED: PROPOFOL 200 MG/20 ML VIAL IV ONE (15:45)
[2025-02-14] MEDS ORDERED: Piperacillin Sodium/Tazobact 50 ML IV SCH (18:00)
[2025-02-15] VITALS: BP 134/83
[2025-02-15 05:45] LABS: BUN 8 mg/dl (9-23); CHLORIDE 99 mmol/L (98-107); POTASSIUM 3.7 mmol/L (3.4-5.1)
[2025-02-15 05:56] LABS: BASO % 0.5 % (0.0-1.0); EOS # 0.1 10*3/uL (0.0-0.4); EOS % 2.3 % (1.0-4.0); HEMATOCRIT 36.9 % (42.0-52.0); MEAN CELL VOLUME 85.2 fl (80.0-94.0); MEAN CORPUSCULAR HGB 27.7 pg (27.0-31.0); MEAN CORPUSCULAR HGB CONC 32.5 g/dl (33.0-37.0); MEAN PLATELET VOLUME 9.1 fl (9.6-12.3); MONO # 0.4 10*3/uL (0.1-1.0); MONO % 7.4 % (3.0-9.0); NEUT # 3.5 10*3/uL (2.3-7.9); NEUT % 61.9 % (47.0-73.0); PLATELET COUNT AUTOMATED 295 10*3/uL (130-400); RED BLOOD COUNT 4.33 10*6/uL (4.50-5.90); RED CELL DISTRI WIDTH 12.8 % (0-14.5); WHITE BLOOD COUNT 5.6 10*3/uL (4.8-10.8)
[2025-02-15 08:00] VITALS: BP 127/90
[2025-02-15 09:07] LABS: ACID FAST SPEC PROCESSING Tissue Grinding (.)
[2025-02-15 09:07] LABS: ACID FAST SPEC PROCESSING Tissue Grinding (.)
[2025-02-15 12:00] VITALS: BP 124/84
[2025-02-15 16:58] VITALS: BP 153/91
[2025-02-15] MEDS ORDERED: CALCIUM (TUMS) 500MG PO ONE (18:55)
[2025-02-15 20:00] VITALS: BP 167/87
[2025-02-16] VITALS: BP 123/75
[2025-02-16] MEDS ORDERED: Nicotine 21 MG PATCH T SCH (05:50)
[2025-02-16 08:00] VITALS: BP 97/64
[2025-02-16 12:00] VITALS: BP 105/54
[2025-02-16] MEDS ORDERED: VANCOMYCIN/WATER FOR INJ (PEG) 300 ML IV SCH (12:00)
[2025-02-16] MEDS ORDERED: CALCIUM (TUMS) 500MG PO PRN (13:45)
[2025-02-16 16:00] VITALS: BP 134/80
[2025-02-16 20:00] VITALS: BP 122/73
[2025-02-17] VITALS: BP 102/65
[2025-02-17 08:00] VITALS: BP 148/88
[2025-02-17 12:00] VITALS: BP 124/107
[2025-02-17 16:00] VITALS: BP 126/78
[2025-02-17 20:00] VITALS: BP 108/71
[2025-02-18] VITALS: BP 100/58
[2025-02-18 08:00] VITALS: BP 124/85
[2025-02-18] MEDS ORDERED: VANCO 1.51.5 GM/250 IV (11:13)
[2025-02-18 12:00] VITALS: BP 127/71
[2025-02-18] MEDS ORDERED: Vancomycin Hydrochloride 1,000 MG in SODIUM CHLORIDE 0.9% 250 ML IV SCH (18:00)
[2025-02-18 20:00] VITALS: BP 121/76
[2025-02-19] VITALS: BP 114/75
[2025-02-19 06:31] LABS: BASO % 0.3 % (0.0-1.0); EOS # 0.1 10*3/uL (0.0-0.4); EOS % 1.4 % (1.0-4.0); HEMATOCRIT 34.2 % (42.0-52.0); MEAN CELL VOLUME 84.2 fl (80.0-94.0); MEAN CORPUSCULAR HGB 28.1 pg (27.0-31.0); MEAN CORPUSCULAR HGB CONC 33.3 g/dl (33.0-37.0); MEAN PLATELET VOLUME 8.8 fl (9.6-12.3); MONO # 0.5 10*3/uL (0.1-1.0); MONO % 6.6 % (3.0-9.0); NEUT # 4.6 10*3/uL (2.3-7.9); NEUT % 64.4 % (47.0-73.0); PLATELET COUNT AUTOMATED 262 10*3/uL (130-400); RED BLOOD COUNT 4.06 10*6/uL (4.50-5.90); RED CELL DISTRI WIDTH 13.1 % (0-14.5); WHITE BLOOD COUNT 7.1 10*3/uL (4.8-10.8)
[2025-02-19 07:11] LABS: BUN 7 mg/dl (9-23); CHLORIDE 105 mmol/L (98-107); POTASSIUM 3.3 mmol/L (3.4-5.1)
[2025-02-19] MEDS ORDERED: POTASSIUM CHLORIDE 20 MEQ TAB PO ONE (07:20)
[2025-02-19 08:00] VITALS: BP 126/69
[2025-02-19 12:00] VITALS: BP 115/68
[2025-02-20] MEDS ORDERED: RIVAROXABAN 10 MG TAB PO SCH (10:00)
== END 2025-02-19 16:31 | DRG 856 ==
LOC: ED 13:28 → EDHOLD 16:02 → 5E 16:02
PROVIDERS: Internal Medicine; Podiatrist; Student in an Organized Health Care Education/Training Program; ADMIT Internal Medicine; ATTEND Internal Medicine
PROC: 0LBN0ZZ Excision of Right Lower Leg Tendon, Open Approach (ICD-10-PCS; 2025-02-14)
PROC: 0HRMXK3 Replacement of Right Foot Skin with Nonautologous Tissue Substitute, Full Thickness, External Approach (ICD-10-PCS; 2025-02-14)
PROC: 2W3LX1Z Immobilization of Right Lower Extremity using Splint (ICD-10-PCS; 2025-02-14)
PROC: 0QBL0ZX Excision of Right Tarsal, Open Approach, Diagnostic (ICD-10-PCS; 2025-02-14)
PROC: 2W1SX6Z Compression of Right Foot using Pressure Dressing (ICD-10-PCS; 2025-02-14)
PROC: 02HV33Z Insertion of Infusion Device into Superior Vena Cava, Percutaneous Approach (ICD-10-PCS; principal; 2025-02-18)
PROC: B548ZZA Ultrasonography of Superior Vena Cava, Guidance (ICD-10-PCS; 2025-02-18)
DX: T81.49XA Infection following a procedure, other surgical site, initial encounter (principal); A41.9 Sepsis, unspecified organism; R65.20 Severe sepsis without septic shock; E44.1 Mild protein-calorie malnutrition; E87.1 Hypo-osmolality and hyponatremia; E87.20 Acidosis, unspecified; M86.8X7 Other osteomyelitis, ankle and foot; L03.115 Cellulitis of right lower limb; E11.65 Type 2 diabetes mellitus with hyperglycemia; E78.00 Pure hypercholesterolemia, unspecified; E87.8 Other disorders of electrolyte and fluid balance, not elsewhere classified; M66.871 Spontaneous rupture of other tendons, right ankle and foot; E11.69 Type 2 diabetes mellitus with other specified complication; K21.9 Gastro-esophageal reflux disease without esophagitis; I10 Essential (primary) hypertension; Y83.8 Other surgical procedures as the cause of abnormal reaction of the patient, or of later complication, without mention of misadventure at the time of the procedure; G20.C Parkinsonism, unspecified; F41.1 Generalized anxiety disorder; E87.6 Hypokalemia; Z96.651 Presence of right artificial knee joint; F17.210 Nicotine dependence, cigarettes, uncomplicated; Z83.3 Family history of diabetes mellitus; Z71.6 Tobacco abuse counseling; Z82.0 Family history of epilepsy and other diseases of the nervous system; Z68.24 Body mass index [BMI] 24.0-24.9, adult; Y92.89 Other specified places as the place of occurrence of the external cause